=== PATIENT | female | born 1940 | race Caucasian/White ===

== ENCOUNTER 2022-08-27 13:20 | Emergency (ER) | payer MEDICARE, SELFPAY ==
--- NOTE | ~2022-08-27 | XR_ITS ---
XR chest 2V DATE: 08/27/2022 13:59 INDICATION: Dry cough for 10 days TECHNIQUE: PA and lateral views COMPARISON: None FINDINGS: Normal heart size. Mild aortic tortuosity. Bilateral hyperinflation suggesting obstructive airways disease. No pulmonary infiltrate or consolida tion, pleural effusion or pulmonary vascular congestion or pneumothorax. Osteopenia. Mild thoracolumbar dextroscoliosis. IMPRESSION: Bilateral hyperinflation; no active cardiopulmonary disease Reviewed, dictated and finalized at location A. ING MACHINE OPERATOR
[2022-08-27 13:26] VITALS: BP 176/69; PULSE 73; RESP 16; TEMP 36.3; O2SAT 100
[2022-08-27 13:41] VITALS: BP 176/69; PULSE 73; RESP 16; TEMP 36.3; O2SAT 100
--- NOTE | 2022-08-27 13:46 | ED.GENADULT ---
HPI - General Adult General Chief complaint: Upper Respiratory Infection Stated complaint: Cough and head congestion Source: patient Mode of arrival: ambulatory Limitations: no limitations History of Present Illness HPI narrative: Patient presents for evaluation of cough for the past 10 days. She states the cough is nonproductive. She had a scratchy throat at time of symptom onset but that has improved. She denies any fever, chills, nausea, vomiting, body aches, shortness of breath, chest pain, leg swelling. No recent sick contacts her knowledge. She has not had COVID in the past. She has received COVID and flu vaccinations. She does not smoke. She is on lisinopril but has been for years. She contacted her primary care provider and they prescribed doxycycline and an antitussive with codeine. She states the medications have not helped with her symptoms. No additional complaints or concerns. Related Data Home Medications Medication Instructions Recorded Confirmed atenolol 25 mg tablet 25 mg PO DAILY 07/17/21 08/27/22 lisinopril 10 mg tablet 10 mg PO DAILY 07/17/21 08/27/22 lovastatin 40 mg tablet 40 mg PO DAILY 07/17/21 08/27/22 codeine 10 mg-guaifenesin 100 mg/5 5 ml PO Q4H PRN Cough 08/27/22 08/27/22 mL oral liquid doxycycline hyclate 100 mg capsule 100 mg PO BID 08/27/22 08/27/22 Allergies Allergy/AdvReac Type Severity Reaction Status Date / Time amoxicillin Allergy Intermediate Diarrhea Verified 08/27/22 13:28 benzoyl peroxide Allergy Unknown Rash Verified 08/27/22 13:28 [From Benzaclin] clindamycin [From Benzaclin] Allergy Unknown Rash Verified 08/27/22 13:28 Review of Systems Review of Systems: CONSTITUTIONAL: Denies fever, chills, or sweats. EYES: Denies visual changes, redness, or discharge. ENT: Denies rhinorrhea, congestion, sore throat, or otalgia. CARDIOVASCULAR: Denies chest pain, palpitations, or edema. RESPIRATORY: Reports cough. Denies SOB. GASTROINTESTINAL: Denies abdominal pain, nausea, vomiting, or diarrhea. GENITOURINARY: Denies dysuria or hematuria. SKIN: Denies rash or itching. MUSCULOSKELETAL: Denies back pain, joint pain, or myalgia. NEUROLOGIC: Denies headache, numbness, dizziness, or weakness. PSYCHIATRIC: Denies anxiety or depression. [facility] Past Medical History Medical History (Updated 08/27/22 @ 14:[address] [facility]) Hyperlipidemia Hypertension Surgical History Surgical History No pertinent past surgical history Family History Family History (Updated 08/27/22 @ 13:[address] [facility]) Mother Hypertension Heart disease Father Aortic aneurysm Social History Social History Smoking status: Former smoker Smoking end date: 10/20/87 Alcohol intake: never Substance use: never Substance use type: does not use Living arrangements: with family Gender identity (if verbalized by the patient): Female Sexual Orientation (if Verbalized by the Patient): Straight or Heterosexual Spiritual care concerns: No Exam Narrative: GENERAL: Well-appearing, well-nourished, and in no acute distress. HEAD: Normocephalic, atraumatic. EYES: PERRLA and EOMI. ENT: Nares clear, no rhinorrhea or epistaxis. Mucous membranes moist. Oropharynx without tonsillar hypertrophy exudate or other lesions. Bilateral TMs pearly mckeon nonbulging NECK: Supple. No adenopathy or masses. No carotid bruits or JVD CHEST: Occasional cough noted on exam. Clear to auscultation. No respiratory distress. No wheezes rales or rhonchi HEART: Regular rate and rhythm. No murmur heard. Normal peripheral pulses. ABDOMEN: Soft, nontender, nondistended, normal active bowel sounds. EXTREMITIES: Normal range of motion. No edema. SKIN: Warm, dry, no rash. NEURO: No focal deficits. Alert and oriented x3. PSYCH: Normal mood and affect. Course Course
== END 2022-08-27 15:05 | disposition home or self-care (01) ==
PROVIDERS: Emergency Provider Nurse Practitioner; PCP Family Medicine
DX: R05.9 Cough, unspecified (principal); Z20.822 Contact with and (suspected) exposure to COVID-19; Z87.891 Personal history of nicotine dependence; E78.5 Hyperlipidemia, unspecified; I10 Essential (primary) hypertension
CPT/HCPCS: 71046; 87426; 87804; 99213; C9803; G0463

== ENCOUNTER 2022-09-25 08:08 | Emergency (ER) | payer MEDICARE, BC, SELFPAY ==
--- NOTE | ~2022-09-25 | XR_ITS ---
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 There is pro minent osteoarthritic change at the first metatarsophalangeal joint. There is a transverse screw thro ugh the midshaft of the proximal phalanx of the great toe. Osteopenia. No fracture, dislocation, periosteal reaction or bone destruction. No erosive changes. 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 KER ENGINEER
[2022-09-25 08:18] VITALS: BP 146/64; PULSE 64; RESP 16; TEMP 36.6; O2SAT 100
--- NOTE | 2022-09-25 08:36 | ED.LOWEXIN ---
HPI - Extremity Injury (Lower) General Chief Complaint: Extremity Injury, Lower Stated Complaint: right foot injury Time Seen by Provider: 09/25/22 08:37 Source: patient, RN notes reviewed and old records reviewed Mode of arrival: ambulatory Limitations: no limitations History of Present Illness HPI Narrative: 82-year-old female who presents to [facility] with complaints of injury to her right foot, reports she fell when she got up out of her chair last night, states foot was asleep. Patient reports pain to the dorsal aspect of her right foot with some ecchymosis and swelling noted. Patient rates her pain 4/10 states it is aching and has taken ibuprofen for her discomfort. Patient is able to bear weight on her right foot. MD complaint: foot injury Onset (ago): day(s) (Last night) Severity scale (1-10): 4 Treatments prior to arrival: NSAIDS Related Data Home Medications Medication Instructions Recorded Confirmed atenolol 25 mg tablet 25 mg PO DAILY 07/17/21 09/25/22 lisinopril 10 mg tablet 10 mg PO DAILY 07/17/21 09/25/22 lovastatin 40 mg tablet 40 mg PO DAILY 07/17/21 09/25/22 omeprazole 20 mg capsule,delayed mg 09/25/22 release Allergies Allergy/AdvReac Type Severity Reaction Status Date / Time amoxicillin Allergy Intermediate Diarrhea Verified 09/25/22 08:30 benzoyl peroxide Allergy Unknown Rash Verified 09/25/22 08:30 [From Benzaclin] clindamycin [From Benzaclin] Allergy Unknown Rash Verified 09/25/22 08:30 Review of Systems Review of Systems: CONSTITUTIONAL: Denies fever, chills, or sweats. EYES: Denies visual changes, redness, or discharge. ENT: Denies rhinorrhea, congestion, sore throat, or otalgia. CARDIOVASCULAR: Denies chest pain, palpitations, or edema. RESPIRATORY: Denies cough or dyspnea. GASTROINTESTINAL: Denies abdominal pain, nausea, vomiting, or diarrhea. GENITOURINARY: Denies dysuria or hematuria. SKIN: Denies rash or itching. MUSCULOSKELETAL: Denies back pain, positive pain to right foot, or myalgia. NEUROLOGIC: Denies headache, numbness, or weakness. PSYCHIATRIC: Denies anxiety or depression. All systems reviewed & are unremarkable except as noted in HPI and below PMFSH Past Medical History Medical History (Updated 09/26/22 @ 10:14 by Kae Moreira NP) GERD (gastroesophageal reflux disease) Hyperlipidemia Hypertension Surgical History Surgical History No pertinent past surgical history Family History Family History (Updated 08/27/22 @ 13:53 by Bud Alonzo [facility], ) Mother Hypertension Heart disease Father Aortic aneurysm Social History Social History Smoking status: Former smoker Smoking end date: 10/20/87 Alcohol intake: never Substance use: never Substance use type: does not use Gender identity (if verbalized by the patient): Female Sexual Orientation (if Verbalized by the Patient): Straight or Heterosexual Spiritual care concerns: No Comments At time of signature, agree with nursing past medical, surgical, social and family history. There is no relevant family history pertinent to the presenting complaint Exam Narrative: GENERAL: Well-appearing, well-nourished, and in no acute distress. HEAD: Normocephalic, atraumatic. EYES: PERRLA and EOMI. ENT: Nares clear, no rhinorrhea or epistaxis. Mucous membranes moist. TM's normal with good light reflex, throat pink with no lesions or swelling. NECK: Supple.no lymphadenopathy CHEST: Clear to auscultation. No respiratory distress. HEART: Regular rate and rhythm. No murmur heard. Normal peripheral pulses. ABDOMEN: Soft, nontender, nondistended, normal active bowel sounds. EXTREMITIES: Normal range of motion. edema noted to dorsal aspect of her right foot with some discomfort voiced, Patient has strong pedal pulse to right foot, nail beds mel briskly. Patient reports pain as
== END 2022-09-25 09:23 | disposition home or self-care (01) ==
PROVIDERS: Emergency Provider Registered Nurse; PCP Family Medicine
DX: S90.31XA Contusion of right foot, initial encounter (principal); W19.XXXA Unspecified fall, initial encounter; K21.9 Gastro-esophageal reflux disease without esophagitis; E78.5 Hyperlipidemia, unspecified; I10 Essential (primary) hypertension; Z87.891 Personal history of nicotine dependence
CPT/HCPCS: 73630; 99213; G0463

== ENCOUNTER 2023-03-07 18:04 | Emergency (ER) | payer MEDICARE, BC, SELFPAY ==
--- NOTE | ~2023-03-07 | XR_ITS ---
EXAMINATION: XR chest 1V portable DATE: 03/07/2023 18:18 INDICATION: Chest pressure. Possible foreign body in the esophagus. TECHNIQUE: frontal view of the chest was obtained. COMPARISON: Chest radiograph dated 08/27/2022 FINDINGS: The lungs remain clear with no focal airspace opacities, pulmonary edema, pleural effusion or pneumot horax. The cardiomediastinal silhouette is normal. No evident radiopaque foreign bodies. IMPRESSION: 1. No radiopaque foreign bodies or acute cardiopulmonary disease. Reviewed, dictated and finalized at location A.
--- NOTE | 2023-03-07 18:07 | ECG_ITS ---
Measurements Intervals [place] Rate: 67 P: 81 MS: 173 QRS: -54 QRSD: 96 T: 29 QT: 425 QTc: 449 Interpretive Statements SINUS RHYTHM LEFT ANTERIOR FASCICULAR BLOCK BASELINE ARTIFACT- I, II, III, AVR, AVL, AVF, V1-V2 ABNORMAL ECG NO PREVIOUS ECG AVAILABLE FOR COMPARISON Electronically Signed On 03-07-2023 22:14:59 CDT by Juan Linda D.O.
[2023-03-07 18:15] VITALS: BP 151/72; PULSE 66; RESP 22; TEMP 36.6; O2SAT 100
[2023-03-07 18:30] VITALS: PULSE 64
[2023-03-07 18:36] LABS: Basophils Percent Auto 0.2 % (0.2-1.2); Hematocrit 37.2 % (37.0-47.0); Hemoglobin 12.3 g/dL (12.0-15.0); Immature Granulocyte Absolute 0.02 K/mm3 (0.00-0.031); Immature Granulocyte Percent A 0.5 % (0-0.5); Lymphocytes Absolute Auto 1.28 K/mm3 (0.9-3.2); Lymphocytes Percent Auto 30.5 % (18.3-44.2); Mean Corpuscular HGB Conc 33.1 g/dl (32-36); Mean Corpuscular Hemoglobin 31.3 pg (26-34); Mean Corpuscular Volume 94.7 fl (80-100); Mean Platelet Volume 9.6 fl (7.4-10.4); Monocytes Absolute Auto 0.4 K/mm3 (0.1-0.6); Neutrophils Absolute Auto 2.5 K/mm3 (1.3-6.7); Neutrophils Percent Auto 58.8 % (45.5-73.1); Platelet Count Result 232 k/mm3 (150-375); Red Blood Count 3.93 M/mm3 (4.2-5.4); Red Cell Distribution Width 12.7 % (11.5-14.5); White Blood Count 4.2 K/mm3 (4.5-10.0)
[2023-03-07 18:48] LABS: Alanine Aminotransferase 20 U/L (6-35); Albumin Level 4.6 g/dL (3.5-5.1); Alkaline Phosphatase 77 U/L (38-126); Anion Gap 9 mmol/L (8-16); Aspartate Amino Transferase 34 U/L (14-36); Bilirubin,Total 0.6 mg/dL (0.2-1.3); Blood Urea Nitrogen 17 mg/dL (7-17); Calcium 9.4 mg/dL (8.4-10.2); Carbon Dioxide 26 mmol/L (22-30); Chloride 103 mmol/L (98-107); Estimated CRCL calculation 37 ml/min; Estimated Glomerular Filt Rate > 60; Glucose 103 mg/dL (65-110); Lipase 206 U/L (23-300); Potassium 3.9 mmol/L (3.4-5.0); Sodium 138 mmol/L (137-145)
[2023-03-07] MEDS: GLUCAGON FOR INJ 1 MG VIAL IV PUSH (18:58)
[2023-03-07 18:59] LABS: Troponin I < 0.012 ng/mL (0.000-0.034)
[2023-03-07] MEDS: LORazepam INJ (*CRX) 2 MG/ML VIAL 0.5 MG IV PUSH (18:59)
[2023-03-07] MEDS: SODIUM CHLORIDE 0.9% IV 1,000 ML 150 ML IV CONT (18:59)
[2023-03-07 19:00] VITALS: BP 145/71; PULSE 64; RESP 24; O2SAT 100
--- NOTE | 2023-03-07 19:15 | PC.NURSE ---
Report given to SPENCER Hernández
[2023-03-07 19:16] LABS: Prothrombin Time 13.3 Seconds (11.1-14.7)
[2023-03-07 19:17] LABS: Partial Thromboplastin Time 25.6 SECONDS (22.3-36.8)
--- NOTE | 2023-03-07 20:06 | ED.GENADULT ---
HPI - General Adult General Chief complaint: Unspecified Stated complaint: food stuck esophagus Time Seen by Provider: 03/07/23 18:34 Source: patient and family Mode of arrival: wheelchair Limitations: no limitations History of Present Illness HPI narrative: 83-year-old with a history of hypertension hyperlipidemia GERD here with the complaints of food stuck in the esophagus. Patient's daughter who is at bedside states that they were eating chicken at dinner and she choked and ever since then she is unable to swallow. She is complaints of midsternal chest pain. She denies any shortness of breath. Daughter also mentioned this happened several years ago and it resolved on its own without any intervention. Onset (ago): hour(s) (1) Location: chest Radiation: non-radiation Severity: moderate Quality: aching Pain Consistency: constant Relieving factors: none Associated symptoms: denies other symptoms Related Data Home Medications Medication Instructions Recorded Confirmed atenolol 25 mg tablet 25 mg PO DAILY 07/17/21 09/25/22 lisinopril 10 mg tablet 10 mg PO DAILY 07/17/21 09/25/22 lovastatin 40 mg tablet 40 mg PO DAILY 07/17/21 09/25/22 omeprazole 20 mg capsule,delayed mg 09/25/22 release Allergies Allergy/AdvReac Type Severity Reaction Status Date / Time amoxicillin Allergy Intermediate Diarrhea Verified 03/07/23 19:04 benzoyl peroxide Allergy Unknown Rash Verified 03/07/23 19:04 [From Benzaclin] clindamycin [From Benzaclin] Allergy Unknown Rash Verified 03/07/23 19:04 Review of Systems Constitutional: Constitutional: Reports no additional constitutional complaints Eyes: Eyes: Reports no additional eye complaints ENT: Reports system reviewed and no additional complaints, except as documented Cardiovascular: Cardiovascular: Reports no additional cardiovascular complaints Respiratory: Respiratory: Reports no additional respiratory complaints Gastrointestinal: Gastrointestinal: Reports as per HPI Musculoskeletal: Musculoskeletal: Reports no additional musculoskeletal complaints Integumentary/Breasts: Skin/Breast: Reports system reviewed and no additional complaints, except as docu Neurologic: Reports system reviewed and no additional complaints, except as documented Psychiatric: Psychiatric: Reports no additional psychiatric complaints PMFSH Past Medical History Medical History GERD (gastroesophageal reflux disease) Hyperlipidemia Hypertension Surgical History Surgical History No pertinent past surgical history Family History Family History Mother Hypertension Heart disease Father Aortic aneurysm Social History Social History Smoking status: Former smoker Smoking end date: 10/20/87 Alcohol intake: never Substance use: never Substance use type: does not use Living arrangements: with family Gender identity (if verbalized by the patient): Female Sexual Orientation (if Verbalized by the Patient): Straight or Heterosexual Spiritual care concerns: No Exam Narrative: GENERAL: Well-appearing, well-nourished, and in mild discomfort HEAD: Normocephalic, atraumatic. EYES: PERRLA and EOMI. ENT: Nares clear, no rhinorrhea or epistaxis. Mucous membranes moist. NECK: Supple. CHEST: Clear to auscultation. No respiratory distress. HEART: Regular rate and rhythm. No murmur heard. Normal peripheral pulses. ABDOMEN: Soft, nontender, nondistended, normal active bowel sounds. EXTREMITIES: Normal range of motion. No edema. SKIN: Warm, dry, no rash. NEURO: No focal deficits. Alert and oriented x3. PSYCH: Normal mood and affect. Course Course Emergency Course: She was given IV glucagon 1 mg and 1 mg of Ativan and IV fluids observed her for half hour she started f
[2023-03-07 20:16] VITALS: BP 122/56; PULSE 60; RESP 13; O2SAT 99
== END 2023-03-07 20:35 | disposition home or self-care (01) ==
PROVIDERS: Emergency Provider Family Medicine; PCP Family Medicine
DX: T18.128A Food in esophagus causing other injury, initial encounter (principal); K21.9 Gastro-esophageal reflux disease without esophagitis; E78.5 Hyperlipidemia, unspecified; I10 Essential (primary) hypertension; Z87.891 Personal history of nicotine dependence; I44.4 Left anterior fascicular block; R07.2 Precordial pain
CPT/HCPCS: 36415; 71045; 80053; 83690; 84484; 85025; 85610; 85730; 93005; 96361; 96374; 96375; 99284; J1610; J2060; J7030